=== PATIENT | male | born 1945 | race Asian ===

== ENCOUNTER 2024-08-23 20:35 | Emergency (ER) | payer MEDICARE, MEDICAID ==
[~2024-08-23] VITALS: Ht 160 cm; Wt 50.0 kg
[2024-08-23 22:14] LABS: BASOPHILS % (AUTO) 0.1 % (0.0-2.0); EOSINOPHILS % (AUTO) 0.2 % (1.0-6.0); HEMATOCRIT 45.2 % (41-53); HEMOGLOBIN 14.7 g/dL (13.5-17.5); LYMPHOCYTES # (AUTO) 0.7 K/uL (1.0-4.8); LYMPHOCYTES % (AUTO) 5.7 % (22.0-44.0); MEAN CORPUSCULAR HEMOGLOBIN 30.8 pg (26.0-34.0); MEAN CORPUSCULAR HGB CONC 32.5 G/dL (31.0-37.0); MEAN CORPUSCULAR VOLUME 95 fL (80-100); MONOCYTES # (AUTO) 0.4 K/uL (0.1-1.0); NEUTROPHILS # (AUTO) 11.3 K/uL (1.8-7.7); PLATELET COUNT (AUTO) 241 K/uL (150-450); RED BLOOD CELL COUNT(AUTO) 4.77 MIL/uL (4.50-5.90); RED CELL DISTRIBUTION WIDTH 14.4 % (11.5-14.5); WHITE BLOOD COUNT (AUTO) 12.4 K/uL (4.5-11.0)
[2024-08-23 22:22] LABS: ANION GAP 8 mmol/L (8-16); CALCIUM, TOTAL 8.8 mg/dL (8.8-10.5); CARBON DIOXIDE 31 mmol/L (22-29); CHLORIDE 103 mmol/L (98-107); CREATININE 1.12 mg/dL (0.60-1.30); GLOMERULAR FILTR. RATE CALC > 60 mL/min (>60); GLUCOSE,RANDOM 137 mg/dL (70-110); SODIUM SERUM 142 mmol/L (136-145); UREA NITROGEN, BLOOD 19 mg/dL (7-18)
[2024-08-23 22:28] LABS: ALANINE AMINOTRANSFERASE 26 U/L (12-78); ALBUMIN 3.7 g/dL (3.4-5.0); ALKALINE PHOSPHATASE 85 U/L (46-116); ASPARTATE AMINOTRANSFERASE 29 U/L (15-37); BILIRUBIN,TOTAL 0.4 mg/dL (0.1-1.0); TOTAL PROTEIN, SERUM 7.8 g/dL (6.4-8.2)
[2024-08-23 22:30] LABS: TROPONIN I-HIGH SENSITIVITY 5 ng/L (<76)
[2024-08-23 22:37] LABS: B-TYPE NATRIURETIC PEPTIDE 14 pg/mL (0-100)
[2024-08-23] MEDS: SODIUM CHLORIDE 0.9% 1,000 ML IV ONE (23:02)
[2024-08-23 23:40] VITALS: BP 135/62; PULSE 65; RESP 15; TEMP 98.3; O2SAT 100
[2024-08-24 01:05] LABS: INFLUENZA TYPE A NEGATIVE FOR TYPE A (NEGATIVE); INFLUENZA TYPE B NEGATIVE FOR TYPE B (NEGATIVE)
[2024-08-24] MEDS ORDERED: ONDA-104 PO (01:27)
== END 2024-08-24 05:12 | disposition home or self-care (01) ==
LOC: EMS 20:35
DX: K52.9 Noninfective gastroenteritis and colitis, unspecified (principal); K63.89 Other specified diseases of intestine
CPT/HCPCS: 99284; 74176; 96360; 80048; 80076; 83880; 84484; 85025; 87804; 36415; 93005; J7030

== ENCOUNTER 2025-06-23 12:11 | Inpatient (IN) | payer OTHER, MEDICAID ==
[~2025-06-23] VITALS: Ht 160 cm; Wt 48.6 kg
[~2025-06-23 12:11] MED LIST: AMLO-257 PO
[2025-06-23] MEDS: MECLIZINE HCL 25 MG TABLET PO ONE (14:33)
[2025-06-23 14:50] LABS: PLATELET COUNT (AUTO) 245 K/uL (150-450); RED BLOOD CELL COUNT(AUTO) 4.76 MIL/uL (4.50-5.90); RED CELL DISTRIBUTION WIDTH 14.1 % (11.5-14.5); WHITE BLOOD COUNT (AUTO) 5.7 K/uL (4.5-11.0)
[2025-06-23 14:57] LABS: CALCIUM, TOTAL 9.3 mg/dL (8.8-10.5); CREATININE 0.90 mg/dL (0.60-1.30); GLOMERULAR FILTR. RATE CALC > 60 mL/min (>60); GLUCOSE,RANDOM 85 mg/dL (70-110); SODIUM SERUM 142 mmol/L (136-145); UREA NITROGEN, BLOOD 14 mg/dL (7-18)
[2025-06-23 14:59] LABS: APPEARANCE,URINE CLEAR (CLEAR); GLUCOSE, URINE (UA) NEGATIVE (NEGATIVE); LEUKOCYTE ESTERASE ,URINE NEGATIVE (NEGATIVE); NITRATE,URINE NEGATIVE (NEGATIVE); OCCULT BLOOD,URINE NEGATIVE (NEGATIVE); SPECIFIC GRAVITIY, URINE 1.006 (1.003-1.030)
[2025-06-23 15:04] LABS: CREATINE KINASE, TOTAL ONLY 121 U/L (39-308)
[2025-06-23 15:07] LABS: TROPONIN I-HIGH SENSITIVITY 8 ng/L (<76)
[2025-06-23] MEDS ORDERED: ONDANSETRON HCL 4 MG/2 ML VIAL IVP PRN (18:15)
[2025-06-23] MEDS ORDERED: HYDROCODONE/ACETAMINOPHEN 5-325 MG TABLET PO PRN (18:15)
[2025-06-23] MEDS ORDERED: BISACODYL 10 MG RECTAL RECTAL SUPPOSITORY PR PRN (18:15)
[2025-06-23] MEDS ORDERED: ACETAMINOPHEN 325 MG TABLET PO PRN (18:15)
[2025-06-23] MEDS ORDERED: ZOLPIDEM TARTRATE 5 MG TABLET PO PRN (18:15)
[2025-06-23] MEDS ORDERED: MAGNESIUM HYDROXIDE SUSPENSION 30 ML UDCUP PO PRN (18:15)
[2025-06-23] MEDS ORDERED: MORPHINE SULFATE 4 MG/ML SYRINGE IVP PRN (18:15)
[2025-06-23] MEDS: DOCUSATE SODIUM 100 MG CAPSULE PO SCH (20:32)
[2025-06-23 23:00] VITALS: BP 133/49; PULSE 51; RESP 16; TEMP 98.2; O2SAT 98
[2025-06-24] MEDS: HEPARIN SODIUM,PORCINE 5,000 UNITS/ML VIAL SQ SCH
[2025-06-24 04:00] VITALS: BP 120/45; PULSE 50; RESP 16; TEMP 98.2; O2SAT 97
[2025-06-24 08:40] VITALS: BP 135/64; PULSE 70; RESP 17; TEMP 97.5; O2SAT 96
[2025-06-24] MEDS: PANTOPRAZOLE SODIUM 40 MG DR TABLET PO SCH (09:35)
[2025-06-24 11:57] VITALS: BP_SYST 115; BP_SYST 128; BP_SYST 130; BP_DIAS 55; BP_DIAS 57; BP_DIAS 68; PULSE 59
[2025-06-24 15:31] VITALS: BP 116/55; PULSE 58; RESP 16; TEMP 98.1; O2SAT 97
[2025-06-24 19:30] VITALS: BP 117/56; PULSE 58; RESP 18; TEMP 98.6; O2SAT 99
[2025-06-24 23:15] VITALS: BP 135/54; PULSE 48; RESP 18; TEMP 97.9; O2SAT 98
[2025-06-25 03:57] VITALS: BP 129/56; PULSE 47; RESP 18; TEMP 97.7; O2SAT 99
[2025-06-25 08:23] VITALS: BP 131/58; PULSE 50; RESP 18; TEMP 98.1; O2SAT 97
[2025-06-25] MEDS ORDERED: MECL-226 PO (11:20)
[2025-06-25 12:17] VITALS: BP 116/52; PULSE 53; RESP 16; TEMP 97.3; O2SAT 99
== END 2025-06-25 13:25 | disposition home or self-care (01) | DRG 74 ==
LOC: EMS 12:13 → EDH 15:53 → 5S 23:04
PROVIDERS: ADMIT Internal Medicine; ATTEND Internal Medicine
DX: G90.89 Other disorders of autonomic nervous system (principal); Z68.1 Body mass index [BMI] 19.9 or less, adult; E44.0 Moderate protein-calorie malnutrition; R42 Dizziness and giddiness; R00.1 Bradycardia, unspecified; I10 Essential (primary) hypertension; Z86.73 Personal history of transient ischemic attack (TIA), and cerebral infarction without residual deficits
CPT/HCPCS: 70450; 71045; 80048; 81003; 82550; 83735; 83880; 84443; 84484; 85025; 85610; 85730; 93005; 93306; 93880; 99285; J1644; 36415-L1; 36415-TC